=== PATIENT | female | born 1935 | race Caucasian/White ===

== ENCOUNTER → 2016-09-23 | Outpatient (CLI) | payer MEDICARE, BC ==
[~2016-09-23] MED LIST: 3N1 COMMODE MC; ALBU8.5H3 INH; BEN25 PO; BISA10SU75 PR; CLON-379 PO; COU1 PO; DOCU-144 PO; DOCU-160 PO; GABA300C16 PO; LOSA1TAB19 PO; MOME13HF2 IH; NA P133E3 PR; OXYC-481 PO; PANT40TA4 PO; POTA10TA37 PO; SIMV40TA3 PO; TRAM50TA2 PO; UDMOM PO; WALK1EAC23 MC; [UNRECOGNIZED DRUG - OTHER] TOP
--- NOTE | 2016-09-23 12:39 | RADRPT ---
PROCEDURE: Left knee radiographs. CLINICAL INDICATION: Left knee pain. TECHNIQUE: Four views. Weight bearing. Frontal, lateral, oblique, and patellar view. COMPARISON: No prior studies are available for comparison. FINDINGS: There is no fracture or dislocation. There is chondrocalcinosis. There are degenerative changes with osteophytes arising from all 3 joint compartment margins. There is moderate lateral joint compartment narrowing. There is no lytic or blastic lesion. There is no radiopaque foreign body. IMPRESSION: 1. Moderate degenerative change predominately involving the lateral joint compartment. 2. Chondrocalcinosis. 3. Otherwise unremarkable study. RPTAT: QQ .Artur Zaldivar MD, MD Date Time Electronically viewed and signed by .Artur Zaldivar MD, MD on 09/23/2016 12:39 .R/
--- NOTE | 2016-09-23 13:05 | RADRPT ---
PROCEDURE: XR Left Hip and pelvis. CLINICAL INDICATION: Left hip pain. Pelvic pain. Postop. TECHNIQUE: Three views. Frontal pelvis. Frontal and lateral left hip. COMPARISON: 09/13/2015. FINDINGS: There is no fracture or dislocation. The soft tissues are normal. There is a left hip total arthroplasty which appears satisfactory. There is moderate right hip osteoarthrosis with joint space narrowing and osteophytes. There has be en prior pelvic surgery with surgical clips noted. There is no lytic or blastic lesion. 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 IMPRESSION: 1. Satisfactory postoperative appearance of the left hip. 2. Moderate degenerative changes of the right hip. 3. Prior pelvic surgery. 4. Degenerative changes of the lower lumbar spine. RPTAT: QQ .Artur Zaldivar MD, Date Time Electronically viewed and signed by .Artur Zaldivar MD, on 09/23/2016 13:05 .R/
== END | disposition home or self-care (01) ==
LOC: HKI 08:51
PROVIDERS: ATTEND Orthopaedic Surgery
DX: M25.562 Pain in left knee (principal); M17.12 Unilateral primary osteoarthritis, left knee; M54.16 Radiculopathy, lumbar region; M51.36 Other intervertebral disc degeneration, lumbar region; Z96.642 Presence of left artificial hip joint
CPT/HCPCS: 73502; 73564; G0463